=== PATIENT | male | born 1995 | race Caucasian/White ===

== ENCOUNTER 2019-02-24 18:14 | Emergency (ER) | payer OTHER ==
[2019-02-24] MEDS ORDERED: HYDROmorphone 1 MG/ML Syringe ONE (18:17)
[2019-02-24] MEDS ORDERED: HYDROmorphone 1 MG/ML Syringe IVPUSH ONE ×3 (18:17→19:51)
[2019-02-24] MEDS ORDERED: Ondansetron 4 MG/2 ML SDV ONE (18:17)
[2019-02-24] MEDS ORDERED: Diphtheria,Pertussis(Acell),Tetanus Vaccine 0.5 ML Syringe IM ONE (18:17)
[2019-02-24] MEDS ORDERED: Sodium Chloride 0.9% 1,000 ML IV ONE (18:17)
[2019-02-24] MEDS ORDERED: Ondansetron 4 MG/2 ML SDV IVPUSH ONE (18:17)
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
[2019-02-24] MEDS ORDERED: Diphtheria,Pertussis(Acell),Tetanus Vaccine 0.5 ML Syringe ONE (18:19)
[2019-02-24 18:54] LABS: BLOOD UREA NITROGEN,BUN 8 mg/dL (7.0-18.0); CARBON DIOXIDE,CO2 23.1 mmol/L (21.0-32.0); CHLORIDE,CL 104 mmol/L (98-107); GLUCOSE RANDOM 146 mg/dL (74-106); POTASSIUM,K 3.3 mmol/L (3.5-5.1); SODIUM,NA 141 mmol/L (136-148)
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
[2019-02-24 20:48] VITALS: BP 125/96; PULSE 106
[2019-02-24] MEDS ORDERED: Iopamidol 755 MG/ML 500 ML Multipack Bottle IVPUSH STA (20:49)
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
== END 2019-02-24 20:12 ==
LOC: MW.ED 18:14
DX: S22.32XA Fracture of one rib, left side, initial encounter for closed fracture (principal); S42.291A Other displaced fracture of upper end of right humerus, initial encounter for closed fracture; S32.030A Wedge compression fracture of third lumbar vertebra, initial encounter for closed fracture; S22.42XA Multiple fractures of ribs, left side, initial encounter for closed fracture; S01.111A Laceration without foreign body of right eyelid and periocular area, initial encounter; S61.412A Laceration without foreign body of left hand, initial encounter; S27.322A Contusion of lung, bilateral, initial encounter; M48.061 Spinal stenosis, lumbar region without neurogenic claudication; S27.0XXA Traumatic pneumothorax, initial encounter; V48.6XXA Car passenger injured in noncollision transport accident in traffic accident, initial encounter; Y92.411 Interstate highway as the place of occurrence of the external cause
CPT/HCPCS: 29105; 36415; 70450; 70486; 71260; 72125; 72128; 72131; 73020; 74177; 80053; 80320; 85025; 85610; 90471; 93005; 96361; 96374; 96375; 96376; 99291; G0390; J1170; J2405; Q9967; 99285; G0480

== ENCOUNTER 2021-12-12 19:00 | Emergency (ER) | payer MEDICAID, SELFPAY ==
[2021-12-12 19:58] VITALS: BP 113/57; PULSE 88
== END 2021-12-12 19:57 ==
LOC: MW.ED 19:00
DX: R07.9 Chest pain, unspecified (principal)
CPT/HCPCS: 99283